=== PATIENT | female | born 1965 | race Caucasian/White ===

== ENCOUNTER → 2018-07-31 | Outpatient (CLI) | payer OTHER | LOC: LAB 13:59 | PROVIDERS: ATTEND Emergency Medicine | DX: Z85.850 Personal history of malignant neoplasm of thyroid (principal) | CPT/HCPCS: 36415; 84432; 84443; 86800 ==

== ENCOUNTER 2018-10-07 11:28 | Emergency (ER) | payer OTHER ==
[~2018-10-07 11:28] MED LIST: LEVO88TA45 PO
[2018-10-07 11:32] VITALS: BP 126/68
--- NOTE | 2018-10-07 11:34 | ER Report ---
History and Physical Time Seen By MD: 11:31 HPI/ROS CHIEF COMPLAINT: Blood exposure HISTORY OF PRESENT ILLNESS: 52-year-old female patient presents to emergency room with complaint of blood exposure. Patient states that she was getting ready to get somebody set up for a CT scan. She states that she flushed and some normal saline. She states that it came out the other lumen, spring her with saline as well as blood. Patient states she washed her face really well. She states that after she finished exam showed that she did have blood to the side of her face. At that time she did contact the nursing tufting supervisor who recommended that she come in for evaluation. Patient denies any problems at this time. Patient states she is wearing eyeglasses doesn't believe she had any body fluids into her eyes. Home Meds Active Scripts Levothyroxine Sodium (LEVOTHYROXINE SODIUM) 88 Mcg Tablet, 88 MCG PO QDAY, #90 TAB 3 Refills Prov:ANT MYRICK MD 08/18/18 Past Medical/Surgical History Patient has a past medical history of hypothyroidism. Patient has a surgical history of thyroidectomy. Reviewed Nurses Notes: Yes Smoking Status: Never Smoker Constitutional Vital Sign - Last 24 Hours 10/07/18 11:32 Temp 98.3 Pulse 66 Resp 16 B/P (MAP) 126/68 Pulse Ox 94 Physical Exam General appearance: Alert no distress. Respiratory: Chest is non tender, lungs are clear to auscultation. Cardiac: Regular rate and rhythm DIFFERENTIAL DIAGNOSIS: After history and physical exam differential diagnosis was considered for blood and body fluid exposure. Medical Decision Making ED Course/Re-evaluation ED Course Patient is admitted and examined, history and physical were obtained. Differential diagnoses were considered. On examination lungs are clear, heart is regular, abdomen soft and nontender. Lab work was done. We are going to contact her when the HIV is available. We will then contact her when we receive the re sults of the hepatitis panel. Patient is to follow-up with her primary care provider with any concerns. Straight emergency room with any concerns. Patient verbalized understanding and agreement with plan. Patient is cleared to go back to work. Decision to Disposition Date: Oct 07, 2018 Decision to Disposition Time: 11:45 Depart Departure Latest Vital Signs Vital Signs Date Time Temp Pulse Resp B/P (MAP) Pulse Ox O2 Delivery O2 Flow Rate FiO2 10/07/18 11:32 98.3 66 16 126/68 94 Impression: Primary Impression: Exposure to blood or body fluid Condition: Improved Disposition: HOME OR SELF-CARE Referrals: ANT MYRICK MD (PCP) Patient Instructions: GENERAL ER DISCHARGE INSTRUCTIONS Additional Instructions: Increase fluid intake. Get plenty of rest. Follow up with employee health as directed to have repeat blood work done. Follow up with your primary care provider with any concerns. I will call with the HIV results when they are available in the next 1-2 hours. We will call with the results of your Hepatitis labs when they are available, in the next couple of days. ABHISHEK HOUSEP Oct 07, 2018 11:34
== END 2018-10-07 12:00 | disposition home or self-care (01) ==
LOC: ER 11:48
DX: Z77.21 Contact with and (suspected) exposure to potentially hazardous body fluids (principal)
CPT/HCPCS: 99281